=== PATIENT | female | born 1980 | race Caucasian/White ===

== ENCOUNTER 2019-04-29 03:55 | Inpatient (IN) | payer MEDICAID ==
[~2019-04-29] VITALS: Ht 147.3 cm; Wt 61.8 kg
[2019-04-29 04:41] VITALS: Ht 147.3 cm; Wt 61.8 kg
[2019-04-29] MEDS ORDERED: PREN1TAB91 PO (04:42)
[2019-04-29] MEDS ORDERED: LACTATED RINGER'S 1,000 ML IV PRN (04:47)
[2019-04-29] MEDS ORDERED: METHYLERGONOVINE 0.2 MG INJ IM PRN (05:00)
[2019-04-29] MEDS ORDERED: CARBOPROST 250 MCG INJ IM PRN (05:00)
[2019-04-29] MEDS ORDERED: OXYTOCIN 30 UNITS/LR 500 ML IV PRN (05:00)
[2019-04-29] MEDS ORDERED: MINERAL OIL LIGHT 10 ML VIAL TOP PRN (05:00)
[2019-04-29] MEDS ORDERED: OXYTOCIN 30 UNITS/LR 500 ML IV SCH ×3 (05:00→13:30)
[2019-04-29] MEDS ORDERED: MISOPROSTOL 200 MCG TAB PR PRN (05:00)
[2019-04-29] MEDS ORDERED: BUTORPHANOL 2 MG INJ IV PRN (05:00)
[2019-04-29] MEDS ORDERED: LIDOCAINE 1% (MPF) 30 ML INJ INJ PRN (05:00)
--- NOTE | 2019-04-29 05:07 | TRIAGE ---
OB Triage Datetime Report Generated by CPN: 04/29/2019 05:06 Datetime: 04/29/2019 04:32 Membrane Status: Intact Datetime: 04/29/2019 04:15 Time of Arrival: 04/29/2019 03:52 EGA: 40.2 Arrived By: Wheelchair Arrived From: Home Chief Complaint: CXS SINCE 0000 Movement: Present Time Contractions Began: 04/29/2019 00:00 Rupture of Membranes: Denies Vaginal Discharge: Denies Time Provider Notified: 04/29/2019 04:45 Provider Notified: FAZILAT Initial Plan: EFM, CALL MD FOR ORDERS Datetime: 04/29/2019 04:10 Vaginal Exam Dilatation (cms): 2.5 Effacement (%): 80 Station: -3 Exam By: ANA Cervix, Consistency: Soft Cervix, Position: Posterior Datetime: 04/29/2019 04:05 Assessment Type: Triage Maternal Assessment Level of Consciousness: Keenly Alert, Responsive DTR's/Clonus: DTRs 2+; No Clonus Headache: Denies Blurred Vision: No Respiratory Effort: Unlabored; Regular Rhythm; Equal Expansion Breath Sounds, Left: Clear and Equal Breath Sounds, Right: Clear and Equal Nausea/Vomiting: Denies RUQ Epigastric Pain: Denies Lower Extremities Edema: None Upper Extremities Edema: None Facial Edema: None Fall Risk Assessment History of Falling: (0) No Secondary Diagnosis: (0) No Ambulatory Aid: (0) Bedrest/Nurse Assist IV Therapy: (0) No Gait: (0) Normal/Bedrest/Immobile Mental Status: (0) Oriented to Own Ability Fall Score: 0 Fall Risk Score Definition: No Risk: No action required
[2019-04-29] MEDS: LACTATED RINGER'S 1,000 ML IV SCH ×4 (05:13→20:39)
--- NOTE | 2019-04-29 06:34 | HP ---
Date/Time of Note Date/Time of Note DATE: 04/29/19 TIME: 06:31 OB - History Hx of Present Free Text/Dictation 38-year-old 3 para 2 at 40 weeks and 2 days of gestation with estimated date of delivery April 27, 2019 Patient presents in active labor with regular contractions Patient reports positive movement, denies vaginal bleeding and leaking fluid GBS status is negative Estimated Due Date: Apr 27, 2019 : 3 Para: 2 Care: Good Care Past Family/Social History * Past Medical, Surgical, Family and Obstetric Histories reviewed from chart. OB Admission Exam Physical Exam HEENT: WNL Heart: Rhythm Normal Lungs: Clear, Equal Abdomen: WNL Extremities: Normal Reflexes: Normal Cervical Dilatation: 3cm Effacement: 75% Station: -3 Membranes: Intact Heart Rate: 140's Accelerations: Accelerations Present Decelerations: No Decelerations Varibility: Moderate Contractions on Admission: 6-10 Minutes Apart Intensity: Moderate Last 72 hours Lab Results CBC & BMP 04/29/19 04:30 OB Assessment/Plan Reason for admission: active labor Induction Method: per Pitocin Protocol Other plan: Admit to labor and delivery Oxytocin augmentation Pain meds as needed Copies To: CC: HELEN ALEJANDRO ; XUAN CAVANAUGH MD Apr 29, 2019 06:34
--- NOTE | 2019-04-29 19:43 | PREAC ---
Date/Time of Note Date/Time of Note DATE: 04/29/19 TIME: 19:42 Anesthesia Eval and Record Evaluation Time Pre-Procedure Interview DATE: 04/29/19 TIME: 19:42 Age 38 Sex female NPO: 8 hrs Preoperative diagnosis LABOR PAIN Planned procedure LABOR EPIDURAL Past Medical History Past Medical History: None : : (3), Para: (2), Gestational age: (40 2/7) Surgery & Anesthesia Issues No known issue Meds Anticoagulation: No Beta Darron within 24 hr: No Reason Beta Darron not given: Pt. not on B-Darron Reported Medications Pnv95/Ferrous Fumarate/FA ( Formula Tablet) 1 Each Tablet, 1 EACH PO DAILY, TAB 04/29/19 Current Medications Lactated Ringer's 1,000 ml @ 125 mls/hr Q8H IV Last administered on 04/29/19at 14:52; Admin Dose 125 MLS/HR; Start 04/29/19 at 04:47 Butorphanol Tartrate (Stadol) 2 mg Q2H PRN IV .PAIN SCALE 6-10; Start 04/29/19 at 05:00 Lidocaine (Xylocaine 1% (Mpf)) 30 ml ONCE PRN INJ .EPISIOTOMY; Start 04/29/19 at 05:00 Oxytocin/Lactated Ringer's 500 ml @ 500 mls/hr ONCE POST IV ; Start 04/29/19 at 05:00 Oxytocin/Lactated Ringer's 500 ml @ 125 mls/hr POST IV ; Start 04/29/19 at 05:00 Lactated Ringer's 1,000 ml @ 2,000 mls/hr Q30M PRN IV .ANESTHESIA Last ad ministered on 04/29/19at 19:33; Admin Dose 2,000 MLS/HR; Start 04/29/19 at 04:47 Oxytocin/Lactated Ringer's 500 ml @ 0 mls/hr ONCE PRN IV .VAGINAL BLEEDING; Start 04/29/19 at 05:00 Methylergonovine Maleate (Methergine) 0.2 mg ONCE PRN IM .VAGINAL BLEEDING; Start 04/29/19 at 05:00 Carboprost Tromethamine (Hemabate) 250 mcg ONCE PRN IM .VAGINAL BLEEDING; Start 04/29/19 at 05:00 Misoprostol (Cytotec) 1,000 mcg ONCE PRN FL .VAGINAL BLEEDING; Start 04/29/19 at 05:00 Oxytocin/Lactated Ringer's 500 ml @ 0 mls/hr Q0M IV Last administered on 04/29/19at 13:42; Admin Dose 1 MLS/HR; Start 04/29/19 at 13:30 Meds reviewed: Yes Allergies Coded Allergies: No Known Allergy (Unverified , 04/29/19) Allergies Reviewed: Yes Labs/Studies Labs Reviewed: Reviewed by anesthesiologist Result Diagram: 04/29/19 0430 Laboratory Tests 04/29/19 04:30 Blood Bank Test 04/29/19 04:30 Antibody Screen NEGATIVE Blood Type O POSITIVE Rh Immune Globulin Candidate NO test: N/A Pre-procedure Exam Airway: Adequate mouth opening, Adequate thyromental dist Mallampati: Mallampati II Teeth: Normal Lung: Normal Heart: Normal ASA Physical Status ASA physical status: 2 Emergency: None Planned Anesthetic Neuraxial: Epidural Planned Pain Management Epidural Pre-operative Attestations Prior to commencing anesthesia and surgery, the patient was re-evaluated, there was verification of: *The patient's identity *The results of appropriate recent lab work and preoperative vital signs *The above evaluation not changing prior to induction *Anesthetic plan, risk benefits, alternative and complications discussed with patient/family; questions answered; patient/family understands, accepts and wishes to proceed. Abelino Garcia M.D. Apr 29, 2019 19:43
[2019-04-29] MEDS ORDERED: NALOXONE (0.4 MG/ML) INJ IV PRN (20:00)
[2019-04-29] MEDS ORDERED: TRIMETHOBENZAMIDE 100 MG/ML VIAL IM PRN (20:00)
[2019-04-29] MEDS ORDERED: FENTAnyl 2MCG/ML-ROPIV 0.2% 100 ML BAG EPI SCH (20:00)
[2019-04-29] MEDS ORDERED: ONDANSETRON 4 MG INJ IV PRN (20:00)
[2019-04-29] MEDS ORDERED: DIPHENHYDRAMINE 50 MG INJ IV PRN (20:00)
[2019-04-30] MEDS ORDERED: MINERAL OIL LIGHT 10 ML VIAL TOP PRN (01:30)
[2019-04-30] MEDS: LACTATED RINGER'S 1,000 ML IV SCH (05:44)
--- NOTE | 2019-04-30 11:31 | LDN ---
Date/Time of Note Date/Time of Note DATE: 04/30/19 TIME: 11:28 Delivery Summary 38 years old -0-0-2 with single intrauterine at 40 weeks and 3 days delivered a viable female over intact perineum. Cord clamp and caught. Baby given to the nurse. Placenta delivered intact and spontaneously with three-vessel cord. Patient tolerated procedure well. Amniotic fluid: Thick meconium Time of delivery 09:0 weight1 7 pounds 1 ounces 9 at 1 minutes and 9 at 5 minutes EBL 150 ml Weeks of Gestation 40 weeks and 3 days Placenta Delivered: Spontaneously Meconium: Thick Episiotomy: No Estimated blood loss: 150 Sponge & Needle done & correct: Yes All needle counts correct: Yes Any foreign bodies felt in the: No Infant Delivery Information Sex Infant Sex: female Apgars 1 Minute: 9 5 Minute: 9 10 Minute: 10 Suctioning Nose & mouth suctioned at ed: No Umbilical Cord Umbilical cord with: 3 Vessels Cord Blood was obtained: Yes Mother & Baby Disposition Disposition Mom & Baby to Maternity; Good: Yes HELEN ALEJANDRO Apr 30, 2019 11:31
[2019-04-30 12:00] VITALS: BP 121/62; PULSE 55; RESP 17
[2019-04-30] MEDS: DEXTROSE 5%-LR 1,000 ML IV SCH ×2 (12:18→20:18)
[2019-04-30] MEDS ORDERED: SENNA/DOCUSATE NA (8.6MG/50MG) TAB PO PRN (12:30)
[2019-04-30] MEDS ORDERED: DIPHENHYDRAMINE 50 MG INJ IV PRN (12:30)
[2019-04-30] MEDS ORDERED: BENZOCAINE 20% 56 ML SPRAY TOP PRN (12:30)
[2019-04-30] MEDS ORDERED: LANOLIN HPA 1 PKT TOP PRN (12:30)
[2019-04-30] MEDS ORDERED: MAGNESIUM HYDROXIDE 30ML CUP PO PRN (12:30)
[2019-04-30] MEDS ORDERED: METHYLERGONOVINE 0.2 MG INJ IM PRN (12:30)
[2019-04-30] MEDS ORDERED: MISOPROSTOL 200 MCG TAB PR PRN (12:30)
[2019-04-30] MEDS: LACTATED RINGER'S 1,000 ML IV* SCH ×2 (12:30→20:30)
[2019-04-30] MEDS ORDERED: CARBOPROST 250 MCG INJ IM PRN (12:30)
[2019-04-30] MEDS ORDERED: ONDANSETRON 4 MG INJ IV PRN (12:30)
[2019-04-30] MEDS ORDERED: WITCH HAZEL/GLYCERIN PAD PR PRN (12:30)
[2019-04-30] MEDS ORDERED: OXYTOCIN 30 UNITS/LR 500 ML IV PRN (12:30)
[2019-04-30] MEDS ORDERED: ACETAMINOPHEN 325 MG TAB PO PRN (12:30)
[2019-04-30] MEDS ORDERED: OXYCODONE/ASPIRIN (4.88/325) TAB PO PRN (12:30)
[2019-04-30] MEDS ORDERED: ZOLPIDEM 5 MG TAB PO PRN (12:30)
[2019-04-30] MEDS ORDERED: DIBUCAINE 1% 30 GM OINT TOP PRN (12:30)
[2019-04-30 15:30] VITALS: BP 102/59; PULSE 55; RESP 16
[2019-04-30] MEDS: IBUPROFEN 600 MG TAB PO SCH (18:15)
[2019-04-30 19:30] VITALS: BP 99/59; PULSE 62; RESP 20
[2019-05-01] VITALS: BP 101/60; PULSE 60; RESP 18
[2019-05-01] MEDS: IBUPROFEN 600 MG TAB PO SCH ×5 (00:07→23:51)
[2019-05-01 04:00] VITALS: BP 118/59; PULSE 60; RESP 20
[2019-05-01] MEDS: DEXTROSE 5%-LR 1,000 ML IV SCH ×2 (04:18→12:18)
[2019-05-01] MEDS: LACTATED RINGER'S 1,000 ML IV* SCH ×2 (04:30→12:30)
[2019-05-01 08:15] VITALS: BP 96/56; PULSE 56; RESP 18
[2019-05-01 15:45] VITALS: BP 120/69; PULSE 61; RESP 18
[2019-05-01 20:00] VITALS: BP 115/60; PULSE 58; RESP 19
[2019-05-02 03:35] VITALS: BP 125/71; PULSE 58; RESP 19
[2019-05-02] MEDS: IBUPROFEN 600 MG TAB PO SCH ×3 (05:40→17:15)
[2019-05-02 08:00] VITALS: BP 129/65; PULSE 55; RESP 18
[2019-05-02] MEDS ORDERED: DIPHTH/TET/ACEL PERTUSS (ADULT) 0.5 ML VIAL IM* ONE (09:00)
[2019-05-02] MEDS ORDERED: MEASLES,MUMPS,RUBELLA VACCINE INJ SC* ONE (09:00)
[2019-05-02 16:00] VITALS: BP 132/79; PULSE 59; RESP 18
--- NOTE | 2019-05-02 18:01 | PD.PPDC ---
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
--- NOTE | 2019-05-02 18:26 | QN ---
Documentation Comment Denies any headache, blurred vision, epigastric pain or right upper quadrant pain. Urinated. Vaginal bleeding minimal. Denies any fever or chills. Ambulating. Breast-feeding. Examination: General appearance: Alert and oriented x4 does not appear to be in any acute distress Abdomen: Soft, fundus firm and palpable just under below the umbilicus and nontender extremities: No calf tenderness, no click no edema no cord palpable Breast: No evidence of mastitis or fissure VS - Last 72 Hours, by Label Date Temp Pulse Resp B/P (MAP) Pulse Ox O2 O2 Flow FiO2 Time Delivery Rate 05/02/19 98.3 59 18 132/79 Room Air 16:00 (96) 05/02/19 98.5 55 18 129/65 Room Air 08:00 (86) 05/02/19 97.9 58 19 125/71 Room Air 03:35 (89) 05/01/19 98.3 58 19 115/60 Room Air 20:00 (78) 05/01/19 98.1 61 18 120/69 Room Air 15:45 (86) 05/01/19 98.0 56 18 96/56 (69) Room Air 08:15 05/01/19 98.3 60 20 118/59 Room Air 04:00 (78) 05/01/19 98.2 60 18 101/60 Room Air 00:00 (74) 04/30/19 98.1 62 20 99/59 (72) Room Air 19:30 04/30/19 97.9 55 16 102/59 Room Air 15:30 (73) 04/30/19 99.5 55 17 121/62 Room Air 12:00 (81) Assessment Status post day #2 Doing well Stable for discharge Follow-up in 6 weeks post with OB office or sooner as needed HELDER HERNANDEZ MD May 02, 2019 18:26
--- NOTE | 2019-05-02 18:27 | DS ---
Date/Time of Note Date/Time of Note DATE: 05/02/19 TIME: 18:27 Discharge Summary Admission/Discharge Info Admit Date/Time Apr 29, 2019 at 04:45 Discharge Date/Time May 02, 2019 Discharge Diagnosis Status post Consults None Procedures Hx of Present Illness 38-year-old 3 para 2 at 40 weeks and 2 days of gestation with estimated date of delivery April 27, 2019, presented with contraction was noted to be in active labor. GBS negative. She progressed well after had augmentation of labor. She delivered a female baby with 9 and 9. Thick meconium noted. EBL 150 cc. Apgars 9 and 9. she did well. On day #2 patient was noted to be stable enough for discharge. She was ambulating. Vaginal bleeding was minimal. Breast-feeding. Her vitals were stable and she denied any symptoms. She was discharged home in stable condition with instruction to return to the clinic in 6 weeks for visit or sooner as needed. Discharge instructions and precaution was provided to the patient. All questions were answered. Hospital Course None complicated Home Meds Reported Medications Pnv95/Ferrous Fumarate/FA ( Formula Tablet) 1 Each Tablet, 1 EACH PO DAILY, TAB 04/29/19 Primary Care Provider Not On Staff Doctor Time spent on discharge: > 30 minutes HELDER HERNANDEZ MD May 02, 2019 18:27
== END 2019-05-02 19:05 | disposition home or self-care (01) | DRG 807 ==
LOC: OBT 03:55 → L-D 03:55 → OBT 04:45 → L-D 04:45 → MS1 04-30 12:09 → L-D 04-30 12:16 → MS1 04-30 12:17
PROVIDERS: ADMIT Obstetrics & Gynecology; ATTEND Obstetrics & Gynecology
PROC: 10E0XZZ Delivery of Products of Conception, External Approach (ICD-10-PCS; principal; 2019-04-29)
PROC: 3E033VJ Introduction of Other Hormone into Peripheral Vein, Percutaneous Approach (ICD-10-PCS; 2019-04-29)
DX: O48.0 Post-term pregnancy (principal); Z37.0 Single live birth; Z3A.40 40 weeks gestation of pregnancy
CPT/HCPCS: 62322; 76815; 85025; 85610; 85730; 86592; 86850; 86900; 86901; 87340; 90715; 99464; G0463; J2590; J3010; J7120; J7121

== ENCOUNTER 2019-09-02 11:21 | Day surgery (SDC) | payer MEDICAID ==
[~2019-09-02] VITALS: Ht 139.7 cm; Wt 53.5 kg
[2019-09-02] VITALS (10 sets, daily range): BP systolic 103–115; BP diastolic 54–72; PULSE 60–78; RESP 16–28; Ht 139.7 cm; Wt 53.5 kg
[~2019-09-02 11:21] MED LIST: CEFAZOLIN 2 GM/50 ML (PMX) 50 ML IVPB ONE; LACTATED RINGER'S 1,000 ML IV SCH; PREN1TAB91 PO
[2019-09-02] MEDS ORDERED: BUPIVACAINE 0.25%/EPI (MDV) 50 ML VIAL INJ ONE (13:47)
[2019-09-02] MEDS ORDERED: ROPIVACAINE 0.5 % 30 ML VIAL ONE (14:25)
[2019-09-02] MEDS ORDERED: HYDROmorphONE 1 MG/5 ML IV SYRINGE IV PRN ×3 (14:30)
[2019-09-02] MEDS ORDERED: DESFLURANE 15 MIN ONE (14:30)
[2019-09-02] MEDS ORDERED: MEPERIDINE 25 MG INJ IV PRN (14:30)
[2019-09-02] MEDS ORDERED: FENTAnyl 50 MCG/ML VIAL IV PRN ×3 (14:30)
[2019-09-02] MEDS ORDERED: hydrALAzine 20 MG INJ IV PRN (14:30)
[2019-09-02] MEDS ORDERED: ALBUTEROL 0.083% (NEB) 2.5 MG/3 ML AMP HHN PRN (14:30)
[2019-09-02] MEDS ORDERED: LABETALOL HCL 20MG INJ IV PRN (14:30)
[2019-09-02] MEDS ORDERED: OXYCODONE/ACETAMINOPHEN (5/325) TAB PO PRN ×2 (14:30)
[2019-09-02] MEDS ORDERED: IPRATROPIUM (NEB) 0.5 MG/2.5 ML AMP HHN PRN (14:30)
[2019-09-02] MEDS ORDERED: EPHEDrine 25 MG/5 ML SYG IV PRN (14:30)
[2019-09-02] MEDS ORDERED: DIPHENHYDRAMINE 50 MG INJ IV PRN (14:30)
[2019-09-02] MEDS ORDERED: ONDANSETRON 4 MG INJ IV PRN (14:30)
[2019-09-02] MEDS ORDERED: CEFAZOLIN 1 GM INJ ONE (14:30)
[2019-09-02] MEDS ORDERED: FENTAnyl 50 MCG/ML VIAL ONE ×2 (14:32→15:01)
[2019-09-02] MEDS ORDERED: MIDAZOLAM 1 MG/ML 2 ML INJ ONE (14:32)
[2019-09-02] MEDS ORDERED: ONDANSETRON 4 MG INJ ONE (15:02)
[2019-09-02] MEDS ORDERED: GLYCOPYRROLATE 0.4 MG INJ ONE (15:02)
[2019-09-02] MEDS ORDERED: PROPOFOL 20 ML ONE (15:02)
[2019-09-02] MEDS ORDERED: NEOSTIGMINE 3 MG/3 ML SYRINGE ONE (15:02)
[2019-09-02] MEDS ORDERED: DEXAMETHASONE 4 MG/ML 5 ML INJ ONE (15:02)
[2019-09-02] MEDS ORDERED: KETOROLAC 30 MG INJ IM STA (16:08)
[2019-09-02] MEDS ORDERED: ACETAMINOPHEN 500 MG TAB PO STA (16:08)
[2019-09-02] MEDS ORDERED: DOXYCYCLINE 100 MG TAB PO ONE (16:30)
[2019-09-02] MEDS ORDERED: BUTORPHANOL 2 MG INJ IM ONE (16:30)
== END 2019-09-02 17:54 | disposition home or self-care (01) ==
LOC: SDS 11:21
PROVIDERS: ATTEND Obstetrics & Gynecology
DX: Z30.2 Encounter for sterilization (principal)
CPT/HCPCS: 58670; 84702; 85025; 85610; 85730; J0595; J0690; J1100; J1885; J2250; J2405; J2710; J2795; J3010; Z7512; Z7610